=== PATIENT | female | born 1970 | race Caucasian/White ===

== ENCOUNTER → 2016-12-21 | Outpatient (CLI) | payer OTHER ==
--- NOTE | 2016-12-21 14:45 | MR ---
EXAMINATION TYPE: MR lumbar spine wo/w con DATE OF EXAM: 12/21/2016 1:46 PM COMPARISON: No images available. Reports from thumb MRI dated 06/19/2015 are reviewed. HISTORY: Back pain CONTRAST: 15 mL intravenous MultiHance. TECHNIQUE: Multiplanar, multisequence images of the lumbar spine were acquired. FINDINGS: Cord terminates at the L1-L2 level. L5-S1: No significant disc bulge or disc herniation. No spinal canal stenosis. No foraminal stenosi s. Facet hypertrophy is present.. L4-L5: Right lateral disc bulging is present. This is contributing to the moderate foraminal stenosis . Correlate with radicular symptoms. No spinal canal stenosis. No foraminal stenosis. Facet hypert rophy is present with posterior lateral thecal sac compression, greater on the right. Correlate with radicular symptoms. Moderate right foraminal stenosis is present. Some beam hardening artifact from p edicle screws is present causing limitation on this level. L3-L4: No significant disc bulge or disc herniation. No spinal canal stenosis. No foraminal stenosi s. Facet hypertrophy is present. L2-L3: No significant disc bulge or disc herniation. No spinal canal stenosis. No foraminal stenosi s. Mild facet hypertrophy is present.. L1-L2: No significant disc bulge or disc herniation. No spinal canal stenosis. No foraminal stenosi s. Neural foramen are patent.. T12-L1: No significant disc bulge or disc herniation. No spinal canal stenosis. No foraminal stenos is. Neural foramen are patent.. No abnormal enhancement. There is normal postsurgical enhancement present. There is susceptibility ar tifact from pedicle screws at the L3 and L2 levels. IMPRESSION: 1. Right lateral disc bulge L4-5. Correlate with right elbow 5 radicular symptoms from foraminal sten osis. 2. Posterior lateral thecal sac impression from facet hypertrophy L4-5. 3. Milder facet hypertrophy is present through the remaining lumbar spine.
--- NOTE | 2016-12-22 21:46 | MR ---
EXAMINATION TYPE: MR cervical spine wo con DATE OF EXAM: 12/21/2016 1:20 PM COMPARISON: NONE HISTORY: 46-year-old female with neck and arm pain TECHNIQUE: Multiplanar, multisequence images of the cervical spine were acquired. FINDINGS: There is moderate mucosal thickening within the sphenoid sinus. No craniocervical junction abnormality, predental space widening, or prevertebral soft tissue swellin g. There is normal alignment of the cervical spine. No suspicious bone marrow replacement though there are scattered areas of mixed Modic type I and type II endplate change particularly at C3-C4, C4-C5 and C6-C7. There is degenerative disc disease throughout the cervical spine with degenerated, desiccated, and na rrowed discs though the degree of narrowing is more advanced at C6-C7. Disc osteophyte complex formation with uncovertebral joint arthropathy and facet arthropathy is also present. At C2-C3, there is right paracentral disc osteophyte complex contiguous with uncovertebral joint arth ropathy. Additional mild facet arthropathy. Changes result in mild right neuroforaminal stenosis. No spinal canal stenosis. At C3-C4, there is eccentric right-sided disc osteophyte complex with uncovertebral joint and facet a rthropathy. Changes result in mild right neuroforaminal stenosis without spinal canal stenosis. At C4-C5, there is mild uncovertebral joint and facet degenerative change without significant canal o r foraminal stenosis. At C5-C6, there is facet arthropathy without significant canal or foraminal stenosis. At C6-C7, there is broad-based disc osteophyte complex contiguous with uncovertebral joint arthropath y. Additional facet arthropathy. Changes result in mild left neuroforaminal stenosis. While there is impression on the ventral thecal sac, changes do not result in any significant spinal canal stenosis. At C7-T1, mild facet arthropathy without significant canal or foraminal stenosis. Normal course, caliber, and signal intensity of the cervical cord. 7 mm T2 bright nodule within the right lobe of the thyroid gland, likely cystic nodule. Otherwise, no prevertebral or paravertebral soft tissue abnormality seen. Mild degenerative disc disease also noted within the visualized upper thoracic spine. IMPRESSION: 1. [id number] multilevel degenerative disc disease with mixed Modic type I and type II endplate change at various levels. 2. The degree of disc interspace narrowing is greatest at C6-C7 where broad-based disc osteophyte com plex impresses on the ventral thecal sac but does not contribute to any significant spinal canal sten osis. Mild left neuroforaminal stenosis at this level. 3. Additional uncovertebral joint and facet arthropathy. Changes result in mild right neuroforaminal stenosis at both C2-C3 and C3-C4. 4. Moderate chronic sphenoid sinus disease.
== END | disposition home or self-care (01) ==
LOC: RADMRIMAIN 12:35
PROVIDERS: ATTEND Nurse Practitioner Acute Care
DX: M48.02 Spinal stenosis, cervical region (principal); M99.71 Connective tissue and disc stenosis of intervertebral foramina of cervical region; M50.30 Other cervical disc degeneration, unspecified cervical region; M46.92 Unspecified inflammatory spondylopathy, cervical region; M51.26 Other intervertebral disc displacement, lumbar region; M48.8X6 Other specified spondylopathies, lumbar region
CPT/HCPCS: 72141; 72158; A9577